=== PATIENT | female | born 1980 | race Caucasian/White ===

== ENCOUNTER 2016-12-28 17:43 | Emergency (ER) | payer OTHER | END 2016-12-28 20:43 | disposition home or self-care (01) | LOC: ER1 17:43 | DX: S61.211A Laceration without foreign body of left index finger without damage to nail, initial encounter (principal); S61.213A Laceration without foreign body of left middle finger without damage to nail, initial encounter; I10 Essential (primary) hypertension; Z88.5 Allergy status to narcotic agent; Z23 Encounter for immunization; Z79.899 Other long term (current) drug therapy; W26.8XXA Contact with other sharp object(s), not elsewhere classified, initial encounter; Y92.009 Unspecified place in unspecified non-institutional (private) residence as the place of occurrence of the external cause | CPT/HCPCS: 12001; 90471; 90714; 99283 ==

== ENCOUNTER 2017-01-12 01:35 | Emergency (ER) | payer OTHER ==
[2017-01-12 02:25] LABS: HEMOGLOBIN 17.4 gm/dl (12.3-15.3); RED BLOOD COUNT 5.91 M/UL (4.00-5.10); WHITE BLOOD COUNT 13.7 K/UL (4.5-11.0)
== END 2017-01-12 08:42 ==
LOC: ER1 01:35
PROVIDERS: Emergency Medicine
DX: N13.2 Hydronephrosis with renal and ureteral calculous obstruction (principal); N39.0 Urinary tract infection, site not specified; Z88.5 Allergy status to narcotic agent
CPT/HCPCS: 36415; 71010; 80053; 81001; 83690; 85025; 87040; 87086; 96374; 96375; 96376; 99285; J0696; J2405

== ENCOUNTER 2017-06-08 10:15 | Emergency (ER) | payer OTHER ==
[2017-06-08 11:14] LABS: HEMOGLOBIN 17.4 gm/dl (12.3-15.3); RED BLOOD COUNT 6.01 M/UL (4.00-5.10); WHITE BLOOD COUNT 11.9 K/UL (4.5-11.0)
[2017-06-08 11:37] LABS: BUN/CREATININE RATIO 16 (0-10)
== END 2017-06-08 12:44 | disposition home or self-care (01) ==
LOC: ER1 10:15
PROVIDERS: Physician Assistant
DX: R10.31 Right lower quadrant pain (principal); R11.10 Vomiting, unspecified; I10 Essential (primary) hypertension; Z87.442 Personal history of urinary calculi; Z88.5 Allergy status to narcotic agent; Z88.1 Allergy status to other antibiotic agents; Z79.899 Other long term (current) drug therapy
CPT/HCPCS: 36415; 80053; 81001; 85025; 96374; 96375; 96376; 99284; J2270; J2405

== ENCOUNTER 2020-10-13 13:20 | Emergency (ER) | payer OTHER ==
[~2020-10-13 13:20] MED LIST: BACTRIM DS TAB1 EACH PO; BACTROBAN OINT22 GM EXT; BENTYL 10MG CAP10 MG PO; BENTYL 20MG TAB20 MG PO; CLEOCIN HCL300 MG PO; ENULOSE10 GM/15 M PO; HYDRALAZINE HCL50 MG PO; KEFLEX CAP 500500 MG PO; LODINE CAP 300300 MG PO; NORCO 7.5-3251 EACH PO; NORFLEX 100 MG100 MG PO; NORVASC10 MG PO; PREDNISONE50 MG PO; PRINIVIL20 MG PO; ROBITUSSIN COU1 EACH PO; TRAMADOL HCL50 MG PO; ZITHROMAX250 MG PO; ZOFRAN ODT 4 MG4 MG PO; ZOFRAN4 MG PO
[2020-10-13] MEDS ORDERED: HYDROCODON-ACE1 EAC4 PO (15:13)
[2021-03-26] MEDS ORDERED: LISINOPRIL20 MG PO (15:55)
[2021-03-26] MEDS ORDERED: PROZAC10 MG PO (15:55)
[2021-03-26] MEDS ORDERED: COREG12.5 MG PO (15:55)
[2021-03-26] MEDS ORDERED: NORVASC10 MG PO (15:55)
[2021-03-26] MEDS ORDERED: KLONOPIN0.5 MG PO (15:56)
[2021-04-01] MEDS ORDERED: PERCOCET 5-3251 EACH PO (11:44)
== END 2020-10-13 15:30 | disposition home or self-care (01) ==
LOC: ER1 13:20
DX: S80.01XA Contusion of right knee, initial encounter (principal); I10 Essential (primary) hypertension; F17.210 Nicotine dependence, cigarettes, uncomplicated; Z88.1 Allergy status to other antibiotic agents; Z88.6 Allergy status to analgesic agent; W18.09XA Striking against other object with subsequent fall, initial encounter
CPT/HCPCS: 72170; 73552; 73564; 99283

== ENCOUNTER 2020-12-27 17:21 | Emergency (ER) | payer OTHER ==
[~2020-12-27 17:21] MED LIST changes: +HYDROCODON-ACE1 EAC4 PO
[2020-12-27 18:44] LABS: HEMOGLOBIN 18.1 gm/dl (12.3-15.3); RED BLOOD COUNT 5.92 M/UL (4.00-5.10); WHITE BLOOD COUNT 11.7 K/UL (4.5-11.0)
[2020-12-27] MEDS ORDERED: MEDROL DOSEPAK 24 MG PO (22:31)
[2020-12-27] MEDS ORDERED: IBUPROFEN600 MG PO (22:31)
[2021-03-26] MEDS ORDERED: PROZAC10 MG PO (15:55)
[2021-03-26] MEDS ORDERED: LISINOPRIL20 MG PO (15:55)
[2021-03-26] MEDS ORDERED: NORVASC10 MG PO (15:55)
[2021-03-26] MEDS ORDERED: COREG12.5 MG PO (15:55)
[2021-03-26] MEDS ORDERED: KLONOPIN0.5 MG PO (15:56)
[2021-04-01] MEDS ORDERED: PERCOCET 5-3251 EACH PO (11:44)
== END 2020-12-27 22:50 | disposition home or self-care (01) ==
LOC: ER1 17:21
PROVIDERS: Physician Assistant Medical
DX: R51.9 Headache, unspecified (principal); R20.2 Paresthesia of skin; I10 Essential (primary) hypertension; F17.210 Nicotine dependence, cigarettes, uncomplicated; Z90.710 Acquired absence of both cervix and uterus; Z86.73 Personal history of transient ischemic attack (TIA), and cerebral infarction without residual deficits; Z88.6 Allergy status to analgesic agent; Z79.899 Other long term (current) drug therapy; Z88.8 Allergy status to other drugs, medicaments and biological substances
CPT/HCPCS: 70450; 80053; 82962; 85025; 93005; 96374; 96375; 99284; J0360; J1100; J2270; J2550; J7030

== ENCOUNTER 2021-03-16 14:43 | Emergency (ER) | payer OTHER ==
[~2021-03-16 14:43] MED LIST changes: +IBUPROFEN600 MG PO; +MEDROL DOSEPAK 24 MG PO
[2021-03-16 15:52] LABS: HEMOGLOBIN 16.5 gm/dl (12.3-15.3); RED BLOOD COUNT 5.35 M/UL (4.00-5.10); WHITE BLOOD COUNT 10.3 K/UL (4.5-11.0)
[2021-03-16 16:21] LABS: BUN/CREATININE RATIO 23 (0-10)
[2021-03-26] MEDS ORDERED: NORVASC10 MG PO (15:55)
[2021-03-26] MEDS ORDERED: LISINOPRIL20 MG PO (15:55)
[2021-03-26] MEDS ORDERED: COREG12.5 MG PO (15:55)
[2021-03-26] MEDS ORDERED: PROZAC10 MG PO (15:55)
[2021-03-26] MEDS ORDERED: KLONOPIN0.5 MG PO (15:56)
[2021-04-01] MEDS ORDERED: PERCOCET 5-3251 EACH PO (11:44)
== END 2021-03-16 19:00 | disposition home or self-care (01) ==
LOC: ER1 14:43
PROVIDERS: Physician Assistant
DX: K43.9 Ventral hernia without obstruction or gangrene (principal); I10 Essential (primary) hypertension; F17.210 Nicotine dependence, cigarettes, uncomplicated; Z90.710 Acquired absence of both cervix and uterus; Z90.49 Acquired absence of other specified parts of digestive tract; Z88.8 Allergy status to other drugs, medicaments and biological substances; Z79.899 Other long term (current) drug therapy
CPT/HCPCS: 80053; 85025; 96374; 96375; 99284; J2270; J2405; Q9967

== ENCOUNTER → 2021-04-01 | Day surgery (SDC) | payer OTHER ==
[~2021-04-01] MED LIST changes: +COREG12.5 MG PO; +KLONOPIN0.5 MG PO; +LISINOPRIL20 MG PO; +PERCOCET 5-3251 EACH PO; +PROZAC10 MG PO
[2021-04-01 07:18] LABS: BUN/CREATININE RATIO 12 (0-10)
== END | disposition home or self-care (01) ==
LOC: OR 06:18
PROVIDERS: Surgery
DX: K43.6 Other and unspecified ventral hernia with obstruction, without gangrene (principal); Z88.1 Allergy status to other antibiotic agents; Z88.6 Allergy status to analgesic agent; I10 Essential (primary) hypertension; F41.9 Anxiety disorder, unspecified; F32.9 Major depressive disorder, single episode, unspecified
CPT/HCPCS: 36415; 80048; 93005; C1781; J0360; J0690; J1170; J2001; J2250; J2270; J2405; J2550; J2704; J2710; J3010; J7030; J7120

== ENCOUNTER 2021-04-19 14:27 | Emergency (ER) | payer OTHER | END 2021-04-19 15:40 | disposition left against medical advice (07) | LOC: ER1 14:27 | DX: Z53.21 Procedure and treatment not carried out due to patient leaving prior to being seen by health care provider (principal) ==

== ENCOUNTER 2021-09-01 02:20 | Emergency (ER) | payer OTHER ==
[2021-09-01 02:52] LABS: HEMOGLOBIN 18.3 gm/dl (12.3-15.3); RED BLOOD COUNT 5.79 M/UL (4.00-5.10)
[2021-09-01 03:12] LABS: BUN/CREATININE RATIO 17 (0-10)
[2021-09-01] MEDS ORDERED: ZOFRAN4 MG PO (04:48)
[2021-09-01] MEDS ORDERED: BENTYL 20MG TAB20 MG PO (04:48)
[2021-09-01] MEDS ORDERED: COLACE100 MG PO (04:48)
[2021-09-01] MEDS ORDERED: MIRALAX17 GM PO (04:48)
== END 2021-09-01 05:00 | disposition home or self-care (01) ==
LOC: ER1 02:20
PROVIDERS: Physician Assistant Medical
DX: K59.00 Constipation, unspecified (principal); I10 Essential (primary) hypertension; F17.210 Nicotine dependence, cigarettes, uncomplicated; Z90.710 Acquired absence of both cervix and uterus; Z87.442 Personal history of urinary calculi
CPT/HCPCS: 80053; 81001; 85025; 96374; 96375; 99284; J2270; J2405